=== PATIENT | female | born 1975 | race Caucasian/White ===

== ENCOUNTER 2025-09-12 12:36 | Observation (INO) | payer MEDICARE, MEDICAID ==
[2025-09-12 13:24] LABS: PLATELET COUNT,PLT 273 K/uL (130-375); RED BLOOD CELL COUNT 4.26 M/uL (3.77-5.24); WHITE BLOOD CELL COUNT,WBC 10.9 K/uL (3.2-11.0)
[2025-09-12 13:29] LABS: APPEARANCE,URINE CLOUDY (CLEAR); GLUCOSE,URINE NEGATIVE (NEGATIVE); OCCULT BLOOD,URINE NEGATIVE (NEGATIVE)
[2025-09-12 13:40] LABS: AMPHETAMINES SCREEN, URINE NEGATIVE (NEGATIVE); METHADONE SCREEN, URINE NEGATIVE (NEGATIVE); METHAMPHETAMINES SCREEN, URINE NEGATIVE (NEGATIVE); OXYCODONE SCREEN,URINE NEGATIVE (NEGATIVE); PROPOXYPHENE SCREEN,URINE NEGATIVE (NEGATIVE); THC SCREEN,URINE 50 NG/ML NEGATIVE (NEGATIVE)
[2025-09-12 13:41] LABS: SQUAMOUS EPITHELIAL CELLS,UR RARE /HPF; UROTHELIAL CELLS,URINE NOT SEEN /HPF
[2025-09-12 13:50] LABS: LACTIC ACID 3.4 mmol/L (0.4-2.0)
[2025-09-12 13:52] LABS: EOSINOPHILS ABSOLUTE MAN 0.33 K/uL (0.00-0.40); EOSINOPHILS PERCENT MAN 3 % (2-4); LYMPHOCYTES ABSOLUTE MAN 5.23 K/uL (0.8-3.3); LYMPHOCYTES PERCENT MAN 48 % (24-44); MONOCYTES ABSOLUTE MAN 0.44 K/uL (0.20-0.90); MONOCYTES PERCENT MAN 4 % (2-6); NEUTROPHILS ABSOLUTE MAN 4.91 K/uL (1.0-7.6); SEG NEUTROPHILS PERCENT MAN 45 % (36-66)
[2025-09-12 13:53] LABS: ATYPICAL LYMPHOCYTES FEW
[2025-09-12 13:56] LABS: A/G RATIO 1.0 (1.2-2.2); ALANINE AMINOTRANSFERASE,ALT 31 U/L (12-78); ASPARTATE AMNIOTRANSFERASE,AST 34 U/L (15-37); BILIRUBIN TOTAL 0.4 mg/dL (0.2-1.0); BLOOD UREA NITROGEN,BUN 6 mg/dL (7-18); CARBON DIOXIDE,CO2 29 mmol/L (21-32); CHLORIDE,CL 100 mmol/L (100-108); CREATININE 0.7 mg/dL (0.6-1.0); ESTIMATED GFR 107 mL/min (>60); GLUCOSE RANDOM 104 mg/dL (74-106); POTASSIUM,K 3.6 mmol/L (3.6-5.2); PROTEIN TOTAL,TP 7.0 g/dL (6.4-8.2); SODIUM,NA 139 mmol/L (140-148)
[2025-09-12 13:57] LABS: PRO B-TYPE NATRIUR PEPT,BNPPRO 44.0 pg/mL (5-125); TROPONIN I HIGH SENSITIVITY 4.0 pg/mL (<=60.3)
[2025-09-12 16:50] LABS: LACTIC ACID 2.7 mmol/L (0.4-2.0)
[2025-09-12] MEDS ORDERED: Naloxone 0.4 MG/ML SDV IVPUSH PRN (16:50)
[2025-09-12] MEDS ORDERED: Sennosides/Docusate Sodium 50-8.6 MG Tab PO PRN (19:16)
[2025-09-12] MEDS ORDERED: Albuterol 0.083% 2.5 MG/3 ML Neb Soln NEB PRN (19:16)
[2025-09-12] MEDS ORDERED: Magnesium Hydroxide 400 MG/5 ML Susp 30 ML Cup PO PRN (19:16)
[2025-09-12] MEDS ORDERED: Ondansetron 4 MG/2 ML SDV IV PRN (19:16)
[2025-09-12] MEDS: Ondansetron 4 MG Tab.DIS PO PRN (20:06)
[2025-09-12] MEDS: Nystatin Topical Powder 15 GM Bottle TOP SCH (21:07)
[2025-09-12] MEDS: Lactobacillus Rhamnosus GG (Probiotic) Cap PO SCH (21:07)
[2025-09-12] MEDS: Ketorolac 30 MG/ML SDV IVPUSH PRN (21:32)
[2025-09-13] MEDS: Phenazopyridine 95 MG Tab PO ONE (01:26)
[2025-09-13 05:39] LABS: PLATELET COUNT,PLT 213.0 K/uL (130-375); RED BLOOD CELL COUNT 3.63 M/uL (3.77-5.24); WHITE BLOOD CELL COUNT,WBC 9.0 K/uL (3.2-11.0)
[2025-09-13 05:58] LABS: BLOOD UREA NITROGEN,BUN 4.0 mg/dL (7-18); CARBON DIOXIDE,CO2 25.0 mmol/L (21-32); CHLORIDE,CL 105.0 mmol/L (100-108); CREATININE 0.7 mg/dL (0.6-1.0); EST CRCL DRUG DOSING (CG) 70.6 mL/min; ESTIMATED GFR 107.0 mL/min (>60); GLUCOSE RANDOM 102.0 mg/dL (74-106); POTASSIUM,K 3.1 mmol/L (3.6-5.2); SODIUM,NA 139.0 mmol/L (140-148)
[2025-09-13] MEDS: LORazepam 2 MG/ML SDV IVPUSH PRN (08:09)
[2025-09-13] MEDS: Potassium Chloride 20 MEQ Tab.ER PO ONE (08:56)
[2025-09-13] MEDS: Nystatin Topical Powder 15 GM Bottle TOP SCH (09:40)
[2025-09-13] MEDS ORDERED: Sodium Chloride 0.9% 10 ML Syringe IV PRN (10:43)
[2025-09-13] MEDS: NICOTINE PATCH CHECK TOP SCH (12:47)
[2025-09-13] MEDS ORDERED: Potassium Chloride 20 MEQ Tab.ER PO ONE (17:00)
== END 2025-09-13 13:45 | disposition home or self-care (01) ==
LOC: JP.ED 12:36 → JP.MS 19:12
PROVIDERS: ADMIT Registered Nurse; ATTEND Hospitalist
DX: A41.9 Sepsis, unspecified organism (principal); N39.0 Urinary tract infection, site not specified; B37.2 Candidiasis of skin and nail; R53.1 Weakness; F17.200 Nicotine dependence, unspecified, uncomplicated; I10 Essential (primary) hypertension; Z88.5 Allergy status to narcotic agent; Z79.899 Other long term (current) drug therapy
CPT/HCPCS: 36415; 74176; 80048; 80053; 80305; 80307; 81001; 82272; 83605; 83880; 84484; 85025; 85027; 87040; 87086; 87088; 87186; 93005; 93010; 94640; 96361; 96365; 96374; 96375; 96376; 99222; 99238; 99285; A9270; G0378; J0696; J2060; J7030; Q0162; J1171; J1885